=== PATIENT | male | born 1950 | race Two or more races ===

== ENCOUNTER 2021-12-02 22:43 | Emergency (ER) | payer OTHER ==
[~2021-12-02] VITALS: Ht 177.8 cm; Wt 45.4 kg
[2021-12-02] MEDS ORDERED: CALCIUM CHLOR(10%) 100MG/ML 10ML SYRINGE IV ONE (22:44)
[2021-12-02] MEDS ORDERED: EPINEPHrine HCL 1 MG/10 ML SYRG IV ONE (22:44)
[2021-12-02] MEDS ORDERED: ATROPINE SULF 1 MG/10ml SYR IV ONE ×3 (22:44→23:15)
[2021-12-02] MEDS ORDERED: SODIUM BICARBONATE 8.4% INJ 50ML SYRINGE IV ONE (22:44)
[2021-12-02] MEDS ORDERED: MIDAZOLAM HCL 2MG/2ML 2ml VIAL (1mg/ml) ONE (22:52)
[2021-12-02] MEDS ORDERED: PROPOFOL 100 ML IV ONE (22:52)
[2021-12-02] MEDS ORDERED: MIDAZOLAM DRIP 50 mg/50mL 50 ML IV ONE (22:56)
[2021-12-02] MEDS ORDERED: ATROPINE SULFATE 1 MG/1 ML VIAL ONE (22:59)
[2021-12-02] MEDS ORDERED: DOPamine 1600MCG/ML D5W 250 ML IV ONE (22:59)
[2021-12-02] MEDS ORDERED: PROPOFOL 100 ML IV SCH (23:00)
[2021-12-02] MEDS ORDERED: ROCURONIUM 10MG/ML 10ML VIAL IV ONE (23:00)
[2021-12-02] MEDS ORDERED: MIDAZOLAM HCL 5 MG/ML-1ML VIAL IV ONE (23:00)
[2021-12-02] MEDS ORDERED: MIDAZOLAM DRIP 50 mg/50mL 50 ML IV SCH (23:00)
[2021-12-02] MEDS ORDERED: ETOMIDATE (2MG/ML) 20ML VIAL IV ONE (23:00)
[2021-12-02] MEDS ORDERED: DOPamine 1600MCG/ML D5W 250 ML IV SCH (23:00)
[2021-12-02 23:03] VITALS: BP 219/39
[2021-12-02] MEDS ORDERED: EPINEPHrine HCL 250 ML IV ONE (23:10)
[2021-12-02] MEDS ORDERED: EPINEPHrine HCL 250 ML IV SCH (23:15)
[2021-12-02 23:18] LABS: Hematocrit 53.8 % (41.0-53.0); Hemoglobin 17.1 g/dL (13.5-17.5); Mean Corpuscular Hemoglobin 31.4 pg (28.0-32.0); Mean Corpuscular Hgb Conc. 31.8 g/dL (32.0-36.0); Mean Corpuscular Volume 98.8 fL (80.0-100.0); Red Blood Cells 5.45 10^6/uL (4.5-5.90); Red Cell Distribution Width 14.3 % (11.8-14.3)
[2021-12-02 23:32] LABS: INR 1.08 (0.9-1.15); Partial Thromboplastin Time 25.8 sec (24.6-33.4)
[2021-12-02 23:36] LABS: Basophils % (manual) 0 (0.0-2.0); Blast Cells 0; Eosinophils % (manual) 0 (0-7); Metamyelocytes % 0; Promyelocytes % 0; Reactive Lymphocytes 0
[2021-12-02 23:41] LABS: Alanine Aminotransferase 287 U/L (16-61); Albumin 2.7 g/dL (3.4-5.0); Anion Gap 15 (5-15); Aspartate Aminotransferase 252 U/L (15-37); BUN/Creatinine Ratio 36.4; Blood Urea Nitrogen 36 mg/dL (7-18); Calcium 8.5 mg/dL (8.5-10.1); Carbon Dioxide 19 mmol/L (21-32); Chloride 98 mmol/L (98-107); GFR African American 96 mL/min; GFR Non-African American 79 mL/min; Glucose 324 mg/dL (74-106); Potassium 5.4 mmol/L (3.5-5.1); Sodium 132 mmol/L (136-145)
[2021-12-02 23:44] LABS: Alkaline Phosphatase 219 U/L (45-117); Bilirubin, Total 0.6 mg/dL (0.2-1.0); Total Protein 6.4 g/dL (6.4-8.2)
[2021-12-03 00:01] LABS: Band Neutrophils % (manual) 6
[2021-12-03 00:02] LABS: Lymphocytes % (manual) 13 (10.0-50.0); Monocytes % (manual) 11 (0-12); Myelocytes % 1
== END 2021-12-02 23:26 ==
LOC: EDBD 22:43 → ER 22:43
DX: I46.9 Cardiac arrest, cause unspecified (principal); I21.9 Acute myocardial infarction, unspecified; I11.0 Hypertensive heart disease with heart failure; I50.9 Heart failure, unspecified; E11.9 Type 2 diabetes mellitus without complications
CPT/HCPCS: 31500; 36415; 36556; 80053; 84484; 85007; 85027; 85610; 85730; 93005; 96374; 96375; 96376; 99285; J0171; J0461; J1265; J2250; J2704; 94002